=== PATIENT | female | born 2000 | race Two or more races ===

== ENCOUNTER 2020-10-27 00:27 | Emergency (ER) | payer MEDICAID ==
[~2020-10-27] VITALS: Ht 162.6 cm; Wt 136.4 kg
[2020-10-27] MEDS ORDERED: LIDOcaine 1% W/epiNEPHrine 1:200,000 10ml vial IJ ONE (01:05)
[2020-10-27] MEDS ORDERED: TETanus/Pertussis (Acell)/Diphther VAC/PF (Tdap-Adult) 0.5ml syringe IMVAC ONE (01:05)
[2020-10-27 01:48] VITALS: BP 134/91
== END 2020-10-27 01:51 | disposition home or self-care (01) ==
LOC: ER 00:28
DX: S91.311A Laceration without foreign body, right foot, initial encounter (principal); Z90.49 Acquired absence of other specified parts of digestive tract; W25.XXXA Contact with sharp glass, initial encounter; Y93.E5 Activity, floor mopping and cleaning; Y92.89 Other specified places as the place of occurrence of the external cause; Y99.8 Other external cause status
CPT/HCPCS: 12001; 90471; 90715; 99283